=== PATIENT | female | born 1990 | race Caucasian/White ===

== ENCOUNTER 2023-05-22 01:17 | Inpatient (IN) ==
[2023-05-22] MEDS ORDERED: Lidocaine 1% VIAL 10 MG/ML 30 ML VIAL INJ PRN (01:55)
[2023-05-22 03:57] LABS: Urine Benzodiazepine Screen None Detected (None Detect); Urine Cannabinoids Screen None Detected (None Detect); Urine Opiates Screen None Detected (None Detect)
[2023-05-22] MEDS: Lactated Ringers 1000 ml BAG 1,000 ML IV ONE ×2 (04:51→09:24)
[2023-05-22 04:52] LABS: ABS Eosinophils 0.1 10^3/uL (0.0-0.5); ABS Lymphocytes 1.5 10^3/uL (1.0-4.8); ABS Monocytes 0.9 10^3/uL (0.0-0.9); ABS Neutrophils 7.7 10^3/uL (1.5-7.6); ABS Nucleated RBC 0.01 10^3/ul; Eosinophil % 0.6 %; Hematocrit 38.6 % (35-45); Hemoglobin 13.8 g/dL (11.5-14.3); Lymphocyte % 14.5 %; Mean Corpuscular Hemoglobin 32.9 pg (27-33); Mean Corpuscular Hgb Conc 35.6 g/dL (31-36); Mean Corpuscular Volume 92.3 fL (80-97); Mean Platelet Volume 9.4 fL (7.5-11.2); Nucleated Red Blood Cells % 0.1 %/100WBC (0.0-0.8); Platelet Count 177 10^3/uL (150-450); Red Blood Count 4.18 10^6/uL (3.63-4.92); Red Cell Distribution Width 14.9 % (12-17); White Blood Count 10.1 10^3/uL (3.8-11.8)
[2023-05-22] MEDS: Penicillin G Potassium IV 5,000,000 UNITS in NS 0.9% 100 ml BAG 100 ML IVPB ONE (04:52)
[2023-05-22] MEDS ORDERED: Sodium Citrate/Citric Acid LIQ 15 ML UDC PO PRN (08:48)
[2023-05-22] MEDS: Penicillin G Potassium IV 3,000,000 UNITS in NS 0.9% 100 ml BAG 100 ML IVPB SCH (09:24)
[2023-05-22] MEDS: Lactated Ringers 1000 ml BAG 1,000 ML IV SCH ×2 (09:30→16:06)
[2023-05-22] MEDS: OBEPIDURAL (200 ML) 200 ML EPIDURAL ONE (09:33)
[2023-05-22 10:34] LABS: Urine Appearance Clear; Urine Bilirubin Negative (Negative); Urine Blood Trace (Negative); Urine Color Light-Yellow; Urine Glucose Negative (Negative); Urine Ketones Negative (Negative); Urine Nitrite Negative (Negative); Urine Protein Negative (Negative); Urine Urobilinogen Negative (Negative); Urine pH 6.5 (5.0-8.0)
[2023-05-22] MEDS: Oxytocin in LR 20,000 MILLI.UNIT/1,000 ML BAG IV ONE (21:19)
[2023-05-22] MEDS: OBEPIDURAL (200 ML) 200 ML EPIDURAL SCH (21:52)
[2023-05-22] MEDS: fentaNYL 100 mcg/2 ml 50 MCG/ML VIAL ONE (21:52)
[2023-05-22] MEDS: Bupivacaine 0.25% SDV PF 10 ML VIAL INJ ONE (21:53)
[2023-05-23] MEDS ORDERED: Glycerin ADULT 2.4 gm SUPP PR PRN (00:47)
[2023-05-23] MEDS ORDERED: RHO D Immune Globulin (HUMAN) 300 MCG = 1,500 I.U. INJ IM PRN (00:47)
[2023-05-23] MEDS ORDERED: Lactated Ringers 1000 ml BAG 1,000 ML IV SCH (01:00)
[2023-05-23] MEDS: Buffered Lidocaine 1% SYRIN 1 ml INTRADERM ONE ×2 (01:27)
[2023-05-23] MEDS: Lidocaine 1.5% EPI 1:200,000 30 ML SDV ONE (01:27)
[2023-05-23] MEDS: Lactated Ringers 1000 ml BAG 1,000 ML IV ONE (01:28)
[2023-05-23] MEDS: Dibucaine 1% OINT 28.35 GM TUBE PR PRN (01:31)
[2023-05-23] MEDS: Witch Hazel PAD JAR TOPICAL PRN (01:31)
[2023-05-23] MEDS: OBEPIDURAL (200 ML) 200 ML EPIDURAL SCH (03:15)
[2023-05-24 06:48] LABS: Hematocrit 31.8 % (35-45); Hemoglobin 11.3 g/dL (11.5-14.3); Mean Corpuscular Hemoglobin 33.3 pg (27-33); Mean Corpuscular Hgb Conc 35.6 g/dL (31-36); Mean Corpuscular Volume 93.4 fL (80-97); Mean Platelet Volume 9.4 fL (7.5-11.2); Platelet Count 140 10^3/uL (150-450); Red Blood Count 3.41 10^6/uL (3.63-4.92); White Blood Count 10.2 10^3/uL (3.8-11.8)
[2023-05-24 07:53] LABS: ABS Basophils 0.1 10^3/uL (0.0-0.1); ABS Eosinophils 0.1 10^3/uL (0.0-0.5); ABS Lymphocytes 1.6 10^3/uL (1.0-4.8); ABS Monocytes 0.7 10^3/uL (0.0-0.9); ABS Neutrophils 7.8 10^3/uL (1.5-7.6); ABS Nucleated RBC 0.01 10^3/ul; Eosinophil % 0.8 %; Lymphocyte % 15.6 %; Nucleated Red Blood Cells % 0.1 %/100WBC (0.0-0.8)
[2023-05-25 08:22] VITALS: BP 124/76
== END 2023-05-25 14:45 | disposition home or self-care (01) | DRG 807 ==
LOC: MCHOBOUT 01:17 → MCHOB 02:16
PROVIDERS: ADMIT Midwife; ATTEND Registered Nurse